=== PATIENT | female | born 1980 ===

== ENCOUNTER 2025-02-10 11:56 | Emergency (ER) | payer OTHER ==
[~2025-02-10] VITALS: Ht 154.9 cm; Wt 75.8 kg
[2025-02-10] MEDS ORDERED: NS 1,000 ML IV SCH (12:05)
[2025-02-10 12:41] LABS: BASOPHILS ABSOLUTE AUTO 0.02 K/mm3 (0.00-0.23); BASOPHILS PERCENT AUTO 0 % (0-2); EOSINOPHILS PERCENT AUTO 0 % (0-6); Hematocrit 41.1 % (33.0-51.0); Hemoglobin 13.8 g/dL (11.5-16.0); IMMATURE GRAN ABSOLUTE AUTO 0.01 K/mm3 (0.00-0.10); IMMATURE GRAN PERCENT AUTO 0 % (0-1); LYMPHOCYTES PERCENT AUTO 22 % (21-46); MONOCYTES ABSOLUTE AUTO 0.34 K/mm3 (0.16-1.47); MONOCYTES PERCENT AUTO 7 % (4-13); Mean Corpuscular HGB 30.2 pg (26.0-34.0); Mean Corpuscular HGB Conc 33.6 g/dL (31.5-36.5); Mean Corpuscular Volume 90 fL (80-100); Mean Platelet Volume 10.5 fL (9.1-12.4); NEUTROPHILS ABSOLUTE AUTO 3.46 K/mm3 (1.96-9.15); NEUTROPHILS PERCENT AUTO 70 % (41-73); Platelet Count 252 K/mm3 (150-400); RDW Coefficient Variation 12.8 % (11.7-14.2); RDW Standard Deviation 42.3 fL (35.1-46.3); Red Blood Cell Count 4.57 M/mm3 (3.80-5.20); White Blood Cell Count 4.93 K/mm3 (4.00-11.30)
[2025-02-10 13:00] LABS: Albumin, Blood 3.3 g/dL (3.4-5.0); Albumin/Globulin Ratio 0.8 (0.8-1.8); Bilirubin, Total 0.2 mg/dL (0.1-1.0); Calcium, Blood 8.5 mg/dL (8.5-10.1); Creatinine, Blood 0.54 mg/dL (0.40-1.00); Globulin, Blood 4.2 g/dL (2.2-4.0); Potassium, Blood 3.7 mmol/L (3.5-5.5); Total Protein, Blood 7.5 g/dL (6.4-8.2)
[2025-02-10 13:22] LABS: Influenza B, PCR NEGATIVE (NEGATIVE); Resp Syncytial Virus, PCR NEGATIVE (NEGATIVE); SARS-Cov-2 (COVID-19) PCR, MMC NEGATIVE (NEGATIVE)
[2025-02-10 13:24] LABS: Influenza A, PCR POSITIVE (NEGATIVE)
[2025-02-10 14:20] VITALS: BP 1113/67
[2025-02-10] MEDS ORDERED: Ondansetron HCl 2 MG / ML 2ML Vial IV ONE (14:55)
[2025-02-10] MEDS ORDERED: Ketorolac Tromethamine 15mg Vial IV ONE (14:55)
[2025-02-10] MEDS ORDERED: Acetaminophen 325 MG TABLET PO ONE (15:00)
[2025-02-10] MEDS ORDERED: ONDA4ODT MM (15:00)
[2025-02-10] MEDS ORDERED: ALBU90OI INH (15:00)
== END 2025-02-10 15:25 | disposition home or self-care (01) ==
LOC: ER 11:56
PROVIDERS: Student in an Organized Health Care Education/Training Program
DX: J10.1 Influenza due to other identified influenza virus with other respiratory manifestations (principal); K59.00 Constipation, unspecified; Z88.0 Allergy status to penicillin; Z88.1 Allergy status to other antibiotic agents; Z91.012 Allergy to eggs
CPT/HCPCS: 0241U; 71046; 80053; 84702; 85025; 96372; 96374; 96375; 99283-25; A9270; J1885; J2405; J7030

== ENCOUNTER 2025-08-03 07:16 | Day surgery (SDC) | payer OTHER ==
[~2025-08-03] VITALS: Ht 157.5 cm; Wt 75.1 kg
[~2025-08-03 07:16] MED LIST: ALBU90OI INH; Bupivacaine 0.5% W/EPI 1:200000 SDV 30 ML Vial ONE; ONDA4ODT MM
[2025-08-03] MEDS ORDERED: CeFAZolin Sodium 2,000 MG VIAL ONE (07:31)
[2025-08-03] MEDS ORDERED: ENILLORING VAG1 EACH VG (07:42)
[2025-08-03] MEDS ORDERED: OMEP20ER PO (07:45)
[2025-08-03] MEDS ORDERED: DOCU100 PO (07:45)
[2025-08-03] MEDS ORDERED: ALLEGRA ALLERG180 MG PO (07:45)
[2025-08-03] MEDS ORDERED: Dexamethasone Sod Phos 10 MG/ML 1ML VIAL ONE (08:40)
[2025-08-03] MEDS ORDERED: Ondansetron HCl 2 MG / ML 2ML Vial ONE (08:40)
[2025-08-03] MEDS ORDERED: HYDROmorphone HCl/Pf 1MG SYR ONE (08:40)
[2025-08-03] MEDS ORDERED: Ketorolac Tromethamine 30mg Vial ONE (08:40)
[2025-08-03] MEDS ORDERED: FentaNYL Citrate 50 MCG/ML 2 ML Injection ONE (08:41)
[2025-08-03] MEDS ORDERED: Rocuronium Bromide 10 MG/ML 5ML Injection IV ONE (09:49)
--- NOTE | 2025-08-03 10:14 | NUR ---
08/03/25 1014 Elida Jimenez RIGHT TOES PINK, WARM, DRY. DRESSING CDI. CAP REFILL <3 SECONDS ON RIGHT TOES
--- NOTE | 2025-08-03 10:39 | NUR ---
08/03/25 1039 Elida Jimenez PT IN RECLINER, WARM BLANKETS APPLIED. RIGHT LEG ELEVATED ON PILLOW AND ICE PACK APPLIED. PHONE RETURNED TO PATIENT. PATIENT TOLERATING ORAL FLUIDS AND SNACKS.
[2025-08-03] MEDS ORDERED: HYDROcodone 5-APAP 325 TAB ONE (10:43)
[2025-08-03 11:05] VITALS: BP 121/69
== END 2025-08-03 11:28 | disposition home or self-care (01) ==
LOC: ORSCSDS 07:16
PROVIDERS: Podiatrist Foot & Ankle Surgery
PROC: 0QBQ0ZZ Excision of Right Toe Phalanx, Open Approach (ICD-10-PCS; principal; 2025-08-03 08:45)
PROC: 0SGK04Z Fusion of Right Tarsometatarsal Joint with Internal Fixation Device, Open Approach (ICD-10-PCS; principal; 2025-08-03 08:45)
DX: M21.611 Bunion of right foot (principal); K21.9 Gastro-esophageal reflux disease without esophagitis; Z79.899 Other long term (current) drug therapy
CPT/HCPCS: A6253; A9270; C1713; J0690; J1100; J1171; J1885; J2405; J2704; J3010; J7120